=== PATIENT | female | born 1930 | race Caucasian/White ===

== ENCOUNTER 2018-12-27 06:54 | Day surgery (SDC) | payer MEDICARE ==
[~2018-12-27] VITALS: Ht 157.5 cm; Wt 54.8 kg
[2018-12-27 07:16] VITALS: BP 136/94
[2018-12-27] MEDS ORDERED: ondansetron 4mg rapidly disintigrating tab PO PRN (07:30)
[2018-12-27] MEDS ORDERED: CARV-50 PO (08:36)
[2018-12-27] MEDS ORDERED: DIGO125T97 PO (08:36)
[2018-12-27] MEDS ORDERED: LOSA25TA96 PO (08:36)
[2018-12-27] MEDS ORDERED: APIX5TAB3 PO (08:36)
[2018-12-27] MEDS ORDERED: FURO-150 PO (08:36)
[2018-12-27] MEDS ORDERED: LISI40TA4 PO (08:36)
[2018-12-27 09:50] VITALS: BP 147/74
[2018-12-27 10:15] VITALS: BP 145/81
[2018-12-27 10:58] LABS: PLEURAL FLUID PH 7.415 (7.63-7.65)
[2018-12-27 10:59] LABS: BFSOURCE RIGHT PLEURAL FLD
[2018-12-27 11:22] LABS: ALBUMIN,BODY FLUID 1.2 G/DL; GLUCOSE,BODY FLUID 147 MG/DL; LDH,BODY FLUID 81 U/L
[2018-12-27 11:42] LABS: TOTAL PROTEIN,BODY FLUID < 2.0 G/DL
[2018-12-27 12:02] LABS: BFAPPEAR CLOUDY; BFCOLOR OTHER; BFVOLUME 52 ML
[2018-12-27 12:03] LABS: BASOPHILS,BODY FLUID 1 %; BF MESOTHELIAL CELLS FEW; BF RBC COUNT 11125 /CU MM; BF WBC COUNT 154 /CU MM (0-1000); LYMPHOCYTES,BODY FLUID 94 %; MONOCYTES,BODY FLUID 1 %; NEUTROPHILS,BODY FLUID 4 %
== END 2018-12-27 12:55 | disposition home or self-care (01) ==
LOC: SSTAY O 06:54
PROVIDERS: ATTEND Radiology Diagnostic Radiology
DX: J90 Pleural effusion, not elsewhere classified (principal); I48.91 Unspecified atrial fibrillation; I11.0 Hypertensive heart disease with heart failure; I50.9 Heart failure, unspecified; Z90.710 Acquired absence of both cervix and uterus; Z98.890 Other specified postprocedural states; Z79.899 Other long term (current) drug therapy
CPT/HCPCS: 32555; 71045; 82042; 82945; 83615; 83986; 84157; 87070; 88108; 88305; 89051

== ENCOUNTER 2019-05-16 08:44 | Day surgery (SDC) | payer MEDICARE ==
[~2019-05-16] VITALS: Ht 157.5 cm; Wt 45.6 kg
[~2019-05-16 08:44] MED LIST: APIX5TAB3 PO; CARV-50 PO; DIGO125T97 PO; FURO-150 PO; LISI40TA4 PO; LOSA25TA96 PO
[2019-05-16 09:12] VITALS: BP 110/79
[2019-05-16] MEDS ORDERED: albumin 25% 100mL bottle x 1 IV PRN (09:15)
[2019-05-16 09:30] VITALS: BP 111/71
== END 2019-05-16 09:35 | disposition home or self-care (01) ==
LOC: SSTAY O 08:44
PROVIDERS: ATTEND Radiology Vascular & Interventional Radiology
DX: J91.8 Pleural effusion in other conditions classified elsewhere (principal); I48.91 Unspecified atrial fibrillation; I11.0 Hypertensive heart disease with heart failure; I50.9 Heart failure, unspecified; Z90.710 Acquired absence of both cervix and uterus; Z98.890 Other specified postprocedural states; Z79.899 Other long term (current) drug therapy
CPT/HCPCS: 76604

== ENCOUNTER 2020-05-29 08:43 | Day surgery (SDC) | payer MEDICARE ==
[~2020-05-29] VITALS: Ht 157.5 cm; Wt 49.5 kg
[~2020-05-29 08:43] MED LIST changes: +LISI40TA13 PO; -LISI40TA4 PO
[2020-05-29 09:15] VITALS: BP 77/41
[2020-05-29] MEDS ORDERED: albumin 25% 100mL bottle x 1 IV PRN (09:25)
[2020-05-29 09:30] VITALS: BP 78/50
[2020-05-29] MEDS ORDERED: AMIO200T61 PO (09:30)
[2020-05-29] MEDS ORDERED: BUME1TAB34 PO (09:30)
[2020-05-29] MEDS ORDERED: SACU1TAB PO (09:30)
[2020-05-29] MEDS ORDERED: CARV-49 PO (09:30)
[2020-05-29 10:00] VITALS: BP 77/44
[2020-05-29] MEDS ORDERED: SPIR25TA5 PO (10:17)
[2020-05-29] MEDS ORDERED: FURO20TA4 PO (10:17)
[2020-05-29] MEDS ORDERED: MIDO2.5T14 PO (10:17)
== END 2020-05-29 11:45 | disposition home or self-care (01) ==
LOC: SSTAY O 08:43
PROVIDERS: ATTEND Radiology Diagnostic Radiology
DX: J90 Pleural effusion, not elsewhere classified (principal); Z53.8 Procedure and treatment not carried out for other reasons; I95.9 Hypotension, unspecified; I48.91 Unspecified atrial fibrillation; I11.0 Hypertensive heart disease with heart failure; I50.9 Heart failure, unspecified; Z90.710 Acquired absence of both cervix and uterus; Z98.890 Other specified postprocedural states; Z79.01 Long term (current) use of anticoagulants; Z79.899 Other long term (current) drug therapy
CPT/HCPCS: 76604